=== PATIENT | female | born 1985 ===

== ENCOUNTER 2018-07-19 06:56 | Emergency (ER) | payer OTHER ==
[~2018-07-19] VITALS: Ht 154.9 cm; Wt 111.1 kg
[2018-07-19] MEDS ORDERED: SYNTHROID200 MCG PO (07:52)
[2018-07-19] MEDS ORDERED: SYNTHROID50 MCG PO (07:52)
== END 2018-07-19 08:59 | disposition home or self-care (01) ==
LOC: ER 06:56
DX: B34.9 Viral infection, unspecified (principal)